=== PATIENT | female | born 1975 | race Two or more races ===

== ENCOUNTER 2024-01-18 08:44 | Outpatient (AMB) | payer OTHER, SELFPAY ==
--- NOTE | 2024-01-18 08:46 | MHC.OFFVIS ---
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 No pain or tenderness no vaginal discharge or any other concerns PFSH Medical History Hypothyroidism Surgical History H/O breast biopsy Family History Father Hypothyroidism Prostate cancer Lung cancer Maternal Grandmother Breast cancer Social History Household Members: Spouse Household Members Other:: son Housing: Apartment Alcohol intake: never Patient Tobacco Use Status: Former Tobacco user Current occupational status: unemployed Sexual orientation: Straight/Heterosexual Gender identity: Female Female Reproductive History Menstrual Age of Menarche: 10 Duration of menses: 3-5 days Date of last menstrual period: 01/01/24 control method: condoms Total pregnancies: 1 Full term: 1 Number of Living Children: 1 Review of Systems Const All systems reviewed & are unremarkable except as noted in HPI and below Physical Exam Vital Signs: BMI result Body Mass Index 20.9 General: Yes no CVA tenderness External Female Exam: normal external appearance (Left labia minora 0.3 cm sebaceous cyst) and normal appearance of the urethra Speculum Exam - Vagina: normal appearance of the vagina, normal palpation, no lesions and no masses Speculum Exam - Cervix: normal appearance of the cervix, normal palpation, no lesions, no masses and nontender Bimanual exam- vagina & uterus: normal bimanual exam, normal palpation, uterine size normal, normal palpation, uterine shape normal, No Cervical tenderness present and non-tender Bimanual Exam- Adnexa, other: normal adnexae Back/Spine/Pelvis Back: no CVA tenderness Assessment & Plan Assessment & Plan (1) Sebaceous cyst: Comment: Left labia minora Code(s): L72.3 - Sebaceous cyst Category: Medical Plan: Discussed with the patient the finding on pelvic exam showing a left labia minora sebaceous cyst, given the size of the cyst and being asymptomatic there is no indication for an IUD. Instructions given to the patient to call in case of pain or tenderness or drainage or redness or any other concerns. All questions answered, the patient verbalized understanding Coding Level of Care Code New Pt Level 3 (33303) Diagnoses Sebaceous cyst L72.3
[2024-01-18 08:48] VITALS: BP 100/56; BMI 20.9
== END 2024-01-18 09:13 | disposition home or self-care (01) ==
PROVIDERS: PCP Internal Medicine; Visit Provider Obstetrics & Gynecology
DX: L72.3 Sebaceous cyst (principal)
CPT/HCPCS: 99203

== ENCOUNTER → 2024-01-18 08:44 | Outpatient (BNVA) | payer OTHER, SELFPAY | PROVIDERS: PCP Internal Medicine; Visit Provider Obstetrics & Gynecology ==

== ENCOUNTER 2024-01-25 09:49 | Outpatient (REF) | payer OTHER, SELFPAY ==
[2024-01-25 13:12] LABS: MANUAL DIFF FLAG NO
[2024-01-25 13:26] LABS: Basophils Percent Auto 0.3 % (0-2); Eosinophils Absolute Auto 0.1 X10*3/uL (0.0-0.4); Eosinophils Percent Auto 1.5 % (0-4); Hemoglobin 13.9 g/dl (12.0-16.0); Imm Gran Abs Auto 0.02 X10*3/uL (0.00-0.03); Imm Gran Pct Auto 0.3 % (0.0-0.4); Lymphocytes Absolute Auto 2.6 X10*3/uL (1.2-4.9); Lymphocytes Percent Auto 38.4 % (20-40); Mean Corpuscular HGB Conc 34.8 g/dl (31.0-35.0); Mean Corpuscular Hemoglobin 32.3 pg (27.0-33.0); Mean Corpuscular Volume 92.8 fL (80.0-98.0); Mean Platelet Volume 10.5 fL (9.4-12.3); Monocytes Absolute Auto 0.5 X10*3/uL (0.1-1.2); Monocytes Percent Auto 7.7 % (2-11); Neutrophils Absolute Auto 3.5 x10*3/uL (2.0-8.3); Neutrophils Percent Auto 51.8 % (45-73); Platelet Count 249 X10*3/uL (160-400); Red Blood Count 4.31 X10*6/uL (4.20-5.50); Red Cell Distribution Width 12.7 % (11.0-16.0); White Blood Count 6.7 X10*3/uL (4.8-10.8)
[2024-01-25 13:50] LABS: Alanine Aminotransferase 20 U/L (0-31); Albumin Level 4.2 g/dL (3.5-5.0); Alkaline Phosphatase 50 U/L (39-117); Anion Gap 12 (12-20); Aspartate Amino Transferase 25 U/L (5-31); Bilirubin Total 0.6 mg/dL (0.0-1.0); Blood Urea Nitrogen 12 mg/dL (9-16); Calcium 9.4 mg/dL (8.4-10.2); Carbon Dioxide 25 mmol/L (22-29); Chloride 106 mmol/L (96-108); Cholesterol 187 mg/dL (<200); Estimated Glomerular Filt Rate > 60; Glucose Random 85 mg/dL (60-115); HDL Cholesterol 58 mg/dL (>40); LDL Cholesterol Calculated 101 mg/dL (<100); Potassium 3.6 mmol/L (3.3-5.1); Sodium 139 mmol/L (135-145); Total Protein 7.4 g/dL (6.5-8.0); Triglycerides 141 mg/dL (<150)
[2024-01-25 14:13] LABS: Thyroid Stimulating Hormone 0.21 uIU/mL (0.32-4.0)
[2024-01-27 08:56] LABS: Follicle Stimulating Hormone 8.6 mIU/mL
== END 2024-01-25 09:50 | disposition home or self-care (01) ==
LOC: HO.HMGCLDS 09:49
PROVIDERS: PCP Internal Medicine; Visit Provider Internal Medicine
DX: Z00.00 Encounter for general adult medical examination without abnormal findings (principal); E03.8 Other specified hypothyroidism; N95.1 Menopausal and female climacteric states; R63.4 Abnormal weight loss
CPT/HCPCS: 36415; 80053; 80061; 83001; 84443; 85025

== ENCOUNTER 2024-03-09 10:50 | Outpatient (AMB) | payer OTHER, SELFPAY ==
[2024-03-09 10:56] VITALS: BP 114/66; BMI 20.7
--- NOTE | 2024-03-09 10:56 | A.OFFVIS_ITS ---
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 No complaints. Last Pap/HPV Last Mammogram No previous screening mammogram PFSH Medical History Hypothyroidism Surgical History H/O breast biopsy Family History Father Hypothyroidism Prostate cancer Lung cancer Maternal Grandmother Breast cancer Social History Household Members: Spouse Household Members Other:: son Housing: Apartment Alcohol intake: never Patient Tobacco Use Status: Former Tobacco user Current occupational status: unemployed Sexual orientation: Straight/Heterosexual Gender identity: Female Female Reproductive History Menstrual Age of Menarche: 10 Date of last menstrual period: 02/27/24 Review of Systems Const All systems reviewed & are unremarkable except as noted in HPI and below Card Reports as per HPI Resp Reports as per HPI GI Reports as per HPI and Reports no additional complaints Reports as per HPI Physical Exam Vital Signs: Last Vital Signs BP 114/66 03/09/24 10:56 BMI result Body Mass Index 20.7 Const General: cooperative, healthy appearing and comfortable Chest Chest palpation & inspection: normal inspection of the chest and normal palpation of entire chest wall Breast/axilla inspection: normal inspection of the breasts and normal inspection of the axillae Breast/axilla palpation: normal palpation of the breasts, normal palpation of the axillae and no axillary lymphadenopathy Resp Effort & Inspection: normal respiratory effort Auscultation: clear to auscultation bilaterally Percussion: percussion normal Cardio Palpation: normal PMI Rate: regular rate Rhythm: regular rhythm Heart sounds: no murmurs and no rubs Peripheral pulses: Peripheral pulses 2+ throughout GI Inspection: Yes normal to inspection Palpation (GI): Soft to palpation, nontender, no guarding, not rigid and No hepatosplenomegaly present Percussion: Yes normal to percussion Auscultation: normal bowel sounds Rectal Exam - Female: deferred General: Yes bladder normal to palpation External Female Exam: No lesion Speculum Exam - Vagina: normal appearance of the vagina, normal palpation, normal vaginal discharge and not erythematous Speculum Exam - Cervix: normal appearance of the cervix and normal palpation Bimanual exam- vagina & uterus: normal bimanual exam, normal palpation, uterine size normal, bladder normal to palpation, consistency normal and normal palpation Bimanual Exam- Adnexa, other: normal adnexae, no masses and no tenderness Assessment & Plan Assessment & Plan (1) Well woman exam: Code(s): Z01.419 - Encounter for gynecological examination (general) (routine) without abnormal findings Category: Medical Plan: Cotesting done. Mammogram ordered. The patient is scheduled with GI in few weeks for screening colonoscopy Counseled the patient about the recommended dietary allowance of 1000 mg of Calcium & 600 IU of vitamin D. The patient was instructed to perform monthly self-breast exams and to schedule an annual exam in a year; All questions answered and the patient verbalized understanding. Instructed the patient to schedule annual exam in a year Orders: Orders MM tomosynthesis screening BI Today Z12.31 - Encounter for screening mammogram for malignant neoplasm of breast PAP + HPV E6/E7 rfx 18/45 Today Z01.419 - Encounter for gynecological examination (general) (routine) without abnormal findings Coding Level of Care Code Est Pt Prev Care 40-64y(87132) Diagnoses Well woman exam Z01.419
== END 2024-03-09 11:16 | disposition home or self-care (01) ==
LOC: HO.HWS 10:50
PROVIDERS: PCP Internal Medicine; Visit Provider Obstetrics & Gynecology
DX: Z01.419 Encounter for gynecological examination (general) (routine) without abnormal findings (principal)
CPT/HCPCS: 99396

== ENCOUNTER 2024-03-09 10:50 | Outpatient (REF) | payer OTHER, SELFPAY ==
[2024-03-13 11:43] LABS: HPV mRNA E6/E7 Not Detected (Not Detected)
== END 2024-03-09 10:51 | disposition home or self-care (01) ==
LOC: HO.LNP 10:50
PROVIDERS: PCP Internal Medicine; Visit Provider Obstetrics & Gynecology
DX: Z01.419 Encounter for gynecological examination (general) (routine) without abnormal findings (principal)
CPT/HCPCS: 87624; 88175

== ENCOUNTER 2024-03-27 09:34 | Outpatient (REF) | payer OTHER, SELFPAY ==
[2024-03-27 14:01] LABS: Thyroid Stimulating Hormone 1.43 uIU/mL (0.32-4.0)
== END 2024-03-27 09:35 | disposition home or self-care (01) ==
LOC: HO.HMGCLDS 09:34
PROVIDERS: PCP Internal Medicine; Visit Provider Internal Medicine
DX: E03.8 Other specified hypothyroidism (principal); Z68.21 Body mass index [BMI] 21.0-21.9, adult
CPT/HCPCS: 36415; 84443

== ENCOUNTER 2024-04-14 10:53 | Outpatient (REF) | payer OTHER, SELFPAY ==
--- NOTE | ~2024-04-14 | MM_ITS ---
EXAMINATION: MM SCREENING DIGITAL BREAST TOMOSYNTHESIS, BILATERAL CLINICAL INFORMATION: Screening. Asymptomatic. 48-year-old female, Breast cancer history in maternal grandmother, no age provided. Known fibrocystic dense breasts. Remote history of benign breast biopsy (unknown side) in 1993. COMPARISON: Mammography: No priors are available for direct comparison. All priors in [place] with unsuccessful attempts to acquire. One bilateral breast ultrasound 11/18/2023 on hard copy print out was reviewed, which demonstrated multiple bilateral cysts and/or fibroadenomas. TECHNIQUE: Digital breast tomosynthesis is performed in both the craniocaudal and mediolateral oblique views along with computer-aided detection (CAD). Synthesized 2D images are generated from the tomosynthesis. FINDINGS: The breasts are extremely dense, which lowers the sensitivity of mammography (ACR BI-RADS breast composition Category d). There are bilateral scattered and loosely grouped calcifications in both breasts, none suspicious or tightly grouped. These have a benign appearance. In addition, there are multiple circumscribed oval and round masses in both breasts, in keeping with known fibrocystic changes. Breast tissue is extremely dense, limiting assessment for subtle findings. Grossly no suspicious masses, suspicious calcifications, or areas of architectural distortion in either breast. No skin or axillary abnormality. MM/MM tomosynthesis screening BI IMPRESSION: No mammographic evidence of malignancy. Benign findings both breasts. ASSESSMENT: BI-RADS BI-RADS 2 - Benign Findings RECOMMENDATION: Routine annual mammography screening. 1 year F/U This examination should not preclude the clinical evaluation of a suspicious palpable abnormality. This patient's information was entered into a reminder system with a target due date for their next mammogram. Electronically signed by: Hubert Hernandes MD 04/17/2024 10:24 AM EDT
== END 2024-04-14 10:54 | disposition home or self-care (01) ==
LOC: HO.MAMMO 10:53
PROVIDERS: PCP Internal Medicine; Visit Provider Obstetrics & Gynecology
DX: Z12.31 Encounter for screening mammogram for malignant neoplasm of breast (principal)
CPT/HCPCS: 77063; 77067

== ENCOUNTER → 2024-04-14 10:56 | Outpatient (BNV) | payer OTHER, SELFPAY | PROVIDERS: PCP Internal Medicine; Visit Provider Radiology Diagnostic Radiology | DX: Z12.31 Encounter for screening mammogram for malignant neoplasm of breast (principal) | CPT/HCPCS: 77063; 77067 ==

== ENCOUNTER 2024-06-23 07:56 | Day surgery (SDC) | payer OTHER, SELFPAY ==
[2024-06-21 14:36] VITALS: BMI 21.6
--- NOTE | 2024-06-22 10:01 | HO.ANESPROP2 ---
Documented by User: Amanda Pollock NP 06/22/24 10:01 HPI - Anesthesia Eval Consult details Narrative: 48yo F for Colonoscopy PMFSH Active Problems Active Problems: All Active Problems Well woman exam (Acute) Sebaceous cyst (Acute) Past Medical History Medical History Hypothyroidism Family History Family History Father Hypothyroidism Prostate cancer Lung cancer Maternal Grandmother Breast cancer Surgical History Surgical History Hx of colonoscopy H/O breast biopsy Social History Social History Household Members: Spouse Household Members Other:: son Housing: Apartment Alcohol intake: never Patient Tobacco Use Status: Former Tobacco user Have you been hit, kicked, punched, or otherwise hurt by someone within the past year? If so, by whom?: No Are you DNR?: No Advance Directives: No Advance Directives Information Provided: Yes Current occupational status: unemployed Sexual orientation: Straight/Heterosexual Gender identity: Female Meds Allergies Allergy/AdvReac Type Severity Reaction Status Date / Time No Known Allergies Allergy Verified 03/09/24 10:59 Home Medications ?Medication ?Instructions ?Recorded ?Confirmed ?Last Taken ?Type levothyroxine 88 mcg tablet 88 mcg PO DAILY 01/18/24 06/21/24 06/23/24 History (Synthroid) Exam Height,Weight and Vital Signs: Height 5 ft 3 in Weight 55.338 kg Assessment and Plan Assessment Anesthesia Assessment: Chart Reviewed Documented by User: Ann Simpson MD 06/23/24 09:19 PMFSH Active Problems Active Problems: All Active Problems Well woman exam (Acute) Sebaceous cyst (Acute) Hypothyroidism Past Medical History Medical History Hypothyroidism Family History Family History Father Hypothyroidism Prostate cancer Lung cancer Maternal Grandmother Breast cancer Family history of problems with anesthesia: No Surgical History Surgical History Hx of colonoscopy H/O breast biopsy History of Problems with Anesthesia: No Social History Social History Household Members: Spouse Household Members Other:: son Housing: Apartment Alcohol intake: never Patient Tobacco Use Status: Former Tobacco user Have you been hit, kicked, punched, or otherwise hurt by someone within the past year? If so, by whom?: No Are you DNR?: No Advance Directives: No Advance Directives Information Provided: Yes Current occupational status: unemployed Sexual orientation: Straight/Heterosexual Gender identity: Female Meds Allergies Allergy/AdvReac Type Severity Reaction Status Date / Time No Known Allergies Allergy Verified 03/09/24 10:59 Home Medications ?Medication ?Instructions ?Recorded ?Confirmed ?Last Taken ?Type levothyroxine 88 mcg tablet 88 mcg PO DAILY 01/18/24 06/21/24 06/23/24 History (Synthroid) Exam Height,Weight and Vital Signs: Height 5 ft 3 in Weight 55.338 kg Vital Signs Temp Pulse Resp BP Pulse Ox O2 Del Method 06/23/24 08:42 98.5 F 70 20 119/69 98 Room Air Pertinent Lab Results Pertinent Lab Results: Lab Results 06/23/24 Range/Units 08:47 Urine Test NEGATIVE (NEGATIVE) Airway Mallampati Class: II TM Dist: >3cm Neck ROM: Full Loose/Missing/Broken Teeth: Yes (Some molars extracted. Denies broken or loose teeth) Heart: RRR Lungs: CTAB Assessment and Plan Assessment Anesthesia Assessment: Anesthesia Plan Discussed and Chart Reviewed Final Anesthetic Review Family History of Problems with Anesthesia: No History of Problems with Anesthesia: No NPO: Yes ASA Class: II Final Preanesthetic Review: No Changes in Pt Med Stat, Meds/Allgs Chart Reviewed, Consent Obtained/Reviewed and Anes Risks/Benef Reviewed Patient Risk: Low Procedure Risk: Low Assessment/Block/Sedation in SS: Assess/Block/Sedation-SS Anesthetic Plan Anesthetic Plan: TIVA Disposition: Standard PACU
[2024-06-23 08:42] VITALS: BP 119/69; PULSE 70; RESP 20; TEMP 36.9; O2SAT 98; BMI 22.0
--- NOTE | 2024-06-23 08:55 | MHC.SHP ---
Pre-Procedural Eval Section A - 24 Hr Update-Section A only Date of Service: 06/23/24 The patient is an INPATIENT: No The patient has been examined within 24 hours of the surgical procedure. The History & Physical has been completed within 30 days and I have reviewed it.: Yes Section B - Complete if H&P > 30 days Chief Complaint: screening Allergies: Allergies Allergy/AdvReac Type Severity Reaction Status Date / Time No Known Allergies Allergy Verified 03/09/24 10:59 Plan I have reviewed the history and physical and performed a pertinent physical examination on my patient. No changes have occurred unless specified. Time Spent With Patient Time: Total time managing care of this patient today ____ minutes.
[2024-06-23] MEDS: Lactated Ringers 1,000 ML 100 ML IVCONT (09:00)
[2024-06-23 09:01] LABS: UPreg QC Valid YES; Urine Pregnancy NEGATIVE (NEGATIVE)
--- NOTE | 2024-06-23 09:04 | MHC.SHP ---
Pre-Procedural Eval Section A - 24 Hr Update-Section A only Date of Service: 06/23/24 The patient is an INPATIENT: No Changes since office visit: No Cold of Flu in the past 2 weeks, No New Medical Problems, No Changes in Medication and No Patient answered all questions The patient has been examined within 24 hours of the surgical procedure. The History & Physical has been completed within 30 days and I have reviewed it.: Yes Section B - Complete if H&P > 30 days Chief Complaint: screening Allergies: Allergies Allergy/AdvReac Type Severity Reaction Status Date / Time No Known Allergies Allergy Verified 03/09/24 10:59 Plan I have reviewed the history and physical and performed a pertinent physical examination on my patient. No changes have occurred unless specified. Time Spent With Patient Time: Total time managing care of this patient today ____ minutes.
[2024-06-23 10:04] VITALS: BP 80/42; PULSE 65; RESP 16; TEMP 36.2; O2SAT 100
[2024-06-23 10:09] VITALS: BP 90/50; PULSE 60; RESP 16; O2SAT 99
[2024-06-23 10:19] VITALS: BP 89/57; PULSE 55; RESP 16; O2SAT 99
--- NOTE | 2024-06-23 10:25 | OP_ITS ---
DATE OF SERVICE: 06/23/2024 SURGEON: Jason Leigh MD INDICATIONS: Colon cancer screening. PREOPERATIVE DIAGNOSIS: POSTOPERATIVE DIAGNOSIS: PROCEDURE PERFORMED: Colonoscopy to the terminal ileum. ESTIMATED BLOOD LOSS: COMPLICATIONS: ANESTHESIA: Medications, monitored anesthesia care. ASSISTANTS: SPECIMENS: DESCRIPTION OF PROCEDURE: History and physical was performed. The risks and benefits of the procedure were explained to the patient. Informed consent was obtained. The patient was placed in a left lateral decubitus position. A digital rectal exam was performed and was found to be normal. The Olympus pediatric video colonoscope was introduced into the rectum and advanced to the cecum. The cecum was identified by transillumination, palpation, and identification of ileocecal valve. Examination was performed. The scope was removed. She tolerated the procedure well and returned to recovery area in stable condition. FINDINGS: The terminal ileum was examined and appeared normal. The visualized colonic mucosa was normal. The quality of prep was good. No polyps were identified. Retroflexed examination shows a small internal hemorrhoids. IMPRESSION: Normal colonoscopy. RECOMMENDATION: 1. Follow up as needed. 2. Repeat colonoscopy is recommended in 10 years for average-risk individuals. MD SHASTA Stinson/SACHIN / [phone]
[2024-06-23 10:34] VITALS: BP 108/68; PULSE 56; RESP 16; TEMP 36.2; O2SAT 100
--- OUTSIDE RECORDS SUMMARY | 2024-06-23 14:52 | XMS_ITS ---
Author Organization [facility] Address [address] [place] [address] Care Team Providers Care Electrotype Caster Name Role Phone Stevan Breanna Primary Care Provider Unavailab Jason Perez Jr REASON FOR VISIT screening Encounters Encounter Location Date Provider Diagnosis [facility] Outpatient [address] [place] [phone] 06/23/2024 Jason Leigh Jr PLAN OF TREATMENT No Information
--- OUTSIDE RECORDS SUMMARY | 2024-06-23 14:53 | XMS_ITS | Patient Health Record ---
Author Organization [facility] Address [address] [place] [address] Care Team Providers Care Cold Rolling Coordinator Name Role Phone Breanna Calles Primary Care Provider UnavailJason Vallejo Jr Unavailable ALLERGIES No Known Allergies RESULTS Component Value Reference Range Notes Ur Preg Test (Not yet review ed by provider) Interpretation: Performing Lab:[facility], [address] [place] [phone] Notes/Report: Urine NEGATIVE NEGATIVE This test was developed to detect early . False negative results may occur after the 5th - 7th week of when using this test method. If clinically indicated, consider a serum hCG. REASON FOR REFERRAL No Information MEDICATIONS Medication SIG (Take, Route, Frequency, Duration) Notes Start Date End Date Status Urinary Health/Cranberry 05/01/2024 Active MiraLax (colon prep) 17 GM/SCOOP mixed with Gatorade or Crystal Light Orally begin at 5:00 p.m. the day before the procedure for 1 day 05/01/2024 Active Centrum Adults - as directed Orally 05/01/2024 Active Levothyroxine Sodium 75 MCG TAKE 1 TABLE T BY MOUTH EVERY DAY Oral for 30 Active IMMUNIZATIONS Vaccine Route Administration Date Status Comme nts Influenza Unknown 04/22/2024 Administered SOCIAL HISTORY Tobacco Use: Social History Observation Description Date Details (start date - stop date) Former Smoker NA - NA Sex Assigned At : Social History Observation Description Sex Assigned At Unknown Tobacco Use/Smoking Question Answer Notes Patient is a former smoker Alcohol Screen Question Answer Notes Did you have a drink containing alcohol in the p ast year? No Points 0 Interpretation Negative PROBLEMS Problem Type ICD Code Onset Dates Problem Status W/U Status Risk SNOMED Code Notes Problem Colon cancer screening (Z12.11) Active confirmed 870783596 Problem Encounter for other preprocedural examination (Z01.818) Active confirmed 493034111 VITAL SIGNS Temperature 98.6 degrees Fahrenheit 05/01/2024 Blood pressure diastolic 00 mm Hg 05/01/2024 Height 5 ft 3 in in 05/01/2024 Blood pressure systolic 000 mm Hg 05/01/2024 Weight 122 lbs 05/01/2024 BMI 21.61 kg/m2 05/01/2024 Encounters Encounter Location Date Provider Diagnosis [facility] Outpatient [address] [place], [place] [phone] 06/23/2024 Jason Leigh Jr [facility] [address] [place] [address] 05/01/2024 Jason Leigh Jr Colon cancer screening Z12.11 and Encounter for other preprocedural examination Z01.818 ASSESSMENTS Encounter Date Diagnosis Assessment Notes Treatment Notes Treatment Clinical Notes 05/01/2024 Colon cancer screening (ICD-10 - Z12.11) Colonoscopy discharge material was printed 05/01/2024 Encounter for other preprocedural examination (ICD-10 - Z01.818) PLAN OF TREATMENT Pending Test Test Name Order Date Ur Preg Test 06/23/2024 Future Test Test Name Order Date COLONOSCOPY 05/01/2024 Insurance Providers Payer Name Payer Address Payer Phone Subscriber Number Group Number Insured Name Patient Relationship to Insured Coverage Start Date Coverage End Date [facility] [address] [place], [place] [id number] TYSON CLAYTON Self - patient is the insured MEDICAL (GENERAL) HISTORY Medical History History ICD Code Hypothyroidism Colonoscopy 2013, normal per patient Surgical History Surgery Date(Month/Year) breast cysts 1993
--- OUTSIDE RECORDS SUMMARY | 2024-06-23 14:53 | XMS_ITS ---
Author Organization [facility] Address [address] [place] [address] Care Team Providers Care Screen Printing Cloth Spreader Name Role Phone Breanna Calles Primary Care Provider Jason Briones Jr Unavailable ALLERGIES No Known Allergies REASON FOR VISIT Patient presents today for a COLONOSCOPY MEDICATIONS Medication SIG (Take, Route, Frequency, Duration) [...] MOUTH EVERY DAY Oral for 30 Active SOCIAL HISTORY Tobacco Use: Social History Observation [...] Problem Colon cancer screening (Z12.11) Active confirmed 379558707 Problem Encounter for other preprocedural examination (Z01.818) Active confirmed 241938651 VITAL SIGNS BMI 21.61 kg/m2 05/01/2024 Blood pressure systolic 000 mm Hg 05/01/20 24 Blood pressure diastolic 00 mm Hg 024 Height 5 ft 3 in in 05/01/2024 Temperature 98.6 degrees Fahrenheit 05/01/20 24 Weight 122 lbs 05/01/2024 Encounters Encounter Location Date Provider Diagnosis [facility] [address] [place] [address] 05/01/2024 Jason Leigh Jr Colon cancer screening Z12.11 and Encounter for other preprocedural examination Z01.818 ASSESSMENTS Encounter Date Diagnosis Assessment Notes Treatment Notes Treatment Clinical Notes 05/01/2024 Colon cancer screening (ICD-10 - Z12.11) Colonoscopy discharge material was printed 05/01/2024 Encounter for other preprocedural examination (ICD-10 - Z01.818) PLAN OF TREATMENT Medication Medication Name Sig Start Date Stop Date Notes MiraLax (colon prep) 17 GM/SCOOP mixed with Gatorade or Crystal Light Orally begin at 5:00 p.m. the day before the procedure for 1 day 05/01/2024 Treatment Notes Assessment Notes Colon cancer screening Colonoscopy disch arge material was printed Future Test Test Name Order Date COLONOSCOPY 05/01/2024 Next Appt Details Follow Up: 1 Year, Reason: Progress Notes * Examination Category Sub-Category Detail Notes General Examination GENERAL APPEARANCE: in no ac hayley distress HEAD: normocephalic EYES: sclera non-icteric NECK/THYROID: no lymphadenopathy HEART: S1, S2 normal, no mu rmurs CHEST: normal shape and exp ansion LUNGS: clear to auscultatio n bilaterally ABDOMEN: soft, nontender, non distended, bowel sounds present, no organomegaly SKIN: anicteric EXTREMITIES: no clubbing, cyanosi s, or edema PSYCH: cognitive function i ntact ORAL CAVITY: mucosa moist
== END 2024-06-23 11:02 | disposition home or self-care (01) ==
PROVIDERS: Nurse Practitioner; PCP Internal Medicine; Visit Provider Internal Medicine Gastroenterology
PROC: 0DJD8ZZ Inspection of Lower Intestinal Tract, Via Natural or Artificial Opening Endoscopic (ICD-10-PCS; CPT 45378; principal; 2024-06-23 09:40)
DX: Z12.11 Encounter for screening for malignant neoplasm of colon (principal); K64.8 Other hemorrhoids; E03.9 Hypothyroidism, unspecified; Z87.891 Personal history of nicotine dependence; Z79.899 Other long term (current) drug therapy
CPT/HCPCS: 45378; 81025; J2003; J2704

== ENCOUNTER 2024-09-28 08:41 | Outpatient (REF) | payer OTHER, SELFPAY ==
--- OUTSIDE RECORDS SUMMARY | 2024-09-28 09:11 | XMS_ITS | Patient Health Record ---
Author Organization [facility] Address [address] [place] [address] Care Team Providers Care Information Writer Name Role Phone Breanna Calles Primary Care Provider Unavailab Jason Perez Jr Unavailable [phone] ALLERGIES No Known Allergies RESULTS Component Value Reference Range Notes Ur Preg Test Reviewed date:06/23/2024 03:37:17 PM Interpretation: Performing Lab:[facility], [address] [place] [phone] Notes/Report: Urine NEGATIVE NEGATIVE This test was [...] Problem Colon cancer screening (Z12.11) Active confirmed 544964634 Problem Encounter for other preprocedural examination (Z01.818) Active confirmed 623234496 VITAL SIGNS Temperature 98.6 degrees Fahrenheit 05/01/2024 Blood pressure diastolic 00 mm Hg 05/01/2024 Height 5 ft 3 in in 05/01/2024 Blood pressure systolic 000 mm Hg 05/01/2024 Weight 122 lbs 05/01/2024 BMI 21.61 kg/m2 05/01/2024 Encounters Encounter Location Date Provider Diagnosis [facility] Outpatient [address] [place], [place] [phone] 06/23/2024 Jason Leigh Jr Colon cancer screening Z12.11 [facility] [address] [place] [address] 05/01/2024 Jason Leigh Jr Colon cancer screening Z12.11 and Encounter for other preprocedural examination Z01.818 ASSESSMENTS Encounter Date Diagnosis Assessment Notes Treatment Notes Treatment Clinical Notes 06/23/2024 Colon cancer screening (ICD-10 - Z12.11) 05/01/2024 Colon cancer screening (ICD-10 - Z12.11) Colonoscopy discharge material was printed 05/01/2024 Encounter for other preprocedural examination (ICD-10 - Z01.818) PLAN OF TREATMENT Future Test Test Name Order Date COLONOSCOPY 05/01/2024 Insurance Providers Payer Name Payer Address Payer Phone Subscriber Number Group Number Insured Name Patient Relationship to Insured Coverage Start Date Coverage End Date [facility] [address] [place], [place] [id number] TYSON CLAYTON Self - patient is the insured MEDICAL (GENERAL) HISTORY Medical History History ICD Code Hypothyroidism Colonoscopy 2013, normal per patient Surgical History Surgery Date(Month/Year) breast cysts 1993
--- OUTSIDE RECORDS SUMMARY | 2024-09-28 09:11 | XMS_ITS ---
Author Organization [facility] Address [address] [place] [address] Care Team Providers Care High Energy Forming Equipment Operator Name Role Phone Breanna Calles Primary Care Provider UnavailJason Vallejo Jr Unavailable [phone] ALLERGIES No Known Allergies REASON FOR VISIT [...] Problem Colon cancer screening (Z12.11) Active confirmed 776935670 Problem Encounter for other preprocedural examination (Z01.818) Active confirmed 251089138 VITAL SIGNS Temperature 98.6 degrees Fahrenheit 05/01/20 24 Blood pressure systolic 000 mm Hg 05/01/20 24 Blood pressure diastolic 00 mm Hg 024 Height 5 ft 3 in in 05/01/2024 Weight 122 lbs 05/01/2024 BMI 21.61 kg/m2 05/01/2024 Encounters Encounter Location Date Provider Diagnosis [facility] [address] [place] [address] 05/01/2024 Jason Leigh Jr Colon cancer screening [...] General Examination GENERAL APPEARANCE: in no ac unga distress HEAD: normocephalic EYES: sclera non-icteric NECK/THYROID: no lymphadenopathy HEART: S1, S2 normal, no mu rmurs CHEST: normal shape and exp ansion LUNGS: clear to auscultatio n bilaterally ABDOMEN: soft, nontender, non distended, bowel sounds present, no organomegaly SKIN: anicteric EXTREMITIES: no clubbing, cyanosi s, or edema PSYCH: cognitive function i ntact ORAL CAVITY: mucosa moist
--- OUTSIDE RECORDS SUMMARY | 2024-09-28 09:12 | XMS_ITS ---
Author Organization [facility] Address [address] [place] [address] Care Team Providers Care Delivery Driver Assistant Name Role Phone Breanna Calles Primary Care Provider Unavailab Jason Perez Jr REASON FOR VISIT screening Encounters Encounter Location Date Provider Diagnosis [facility] Outpatient [address] [place] [phone] 06/23/2024 Jason Leigh Jr Colon cancer screening Z12.11 ASSESSMENTS Encounter Date Diagnosis Assessment Notes Treatment Notes Treatment Clinical Notes 06/23/2024 Colon cancer screening (ICD-10 - Z12.11) PLAN OF TREATMENT No Information
== END 2024-09-28 08:42 | disposition home or self-care (01) ==
LOC: HO.HMGCLDS 08:41
PROVIDERS: PCP Internal Medicine; Visit Provider Internal Medicine
DX: E03.8 Other specified hypothyroidism (principal); N30.00 Acute cystitis without hematuria; R30.0 Dysuria
CPT/HCPCS: 36415; 84443

== ENCOUNTER 2024-11-03 07:50 | Outpatient (REF) | payer OTHER, SELFPAY ==
--- NOTE | ~2024-11-03 | US_ITS ---
EXAMINATION: US SCREENING ULTRASOUND BREAST, BILATERAL CLINICAL INFORMATION: Dense breasts on mammography. Screening ultrasound. COMPARISON: Mammogram April 14, 2024. TECHNIQUE: Ultrasound is performed using grayscale imaging and color Doppler. Imaging is performed to include the four quadrants and retroareolar region. Both breasts are imaged. FINDINGS: Right breast: There is no suspicious finding by ultrasound. There is no solid mass or focal architectural abnormality. Left breast: There is no suspicious finding by ultrasound. There is no solid mass or focal architectural abnormality. US/US breast BI complete IMPRESSION: No suspicious findings on screening breast ultrasound. ASSESSMENT: BI-RADS 1 - Negative RECOMMENDATION: 1 year F/U This patient's information was entered into a reminder system with a target due date for their next mammogram. Electronically signed by: Zenobia Servin DO 11/03/2024 08:54 AM EDT
--- OUTSIDE RECORDS SUMMARY | 2024-11-03 07:54 | XMS_ITS | Patient Health Record ---
Author Organization [facility] Address [address] [place] [address] Care Team Providers Care President And Cmo Name Role Phone Breanna Calles Primary Care Provider Unavailab Jason Perez Jr Unavailable Allergies No Known Allergies Results Component Value Reference Range Notes Ur Preg Test Reviewed date:06/23/2024 03:37:17 PM Interpretation: Performing Lab:[facility], [address] [place] [phone] Notes/Report: Urine NEGATIVE NEGATIVE This test was developed to detect early . False negative results may occur after the 5th - 7th week of when using this test method. If clinically indicated, consider a serum hCG. Reason For Referral No Information Medications Medication SIG (Take, Route, Frequency, Duration) Notes [...] MOUTH EVERY DAY Oral for 30 Active Immunizations Vaccine Route Administration Date Status Comme nts Influenza Unknown 04/22/2024 Administered Social History Tobacco Use: Social History Observation Description Date Details (start date - stop date) Former Smoker NA - NA Tobacco Use/Smoking Question Answer Notes Patient is a former smoker Alcohol Screen Question Answer Notes Did you have a drink containing alcohol in the p ast year? No Points 0 Interpretation Negative Problems Problem Type SNOMED Code ICD Code Onset Dates Problem Status W/U Status Risk Notes Problem 318356431 Colon cancer screening (Z12.11) Active confirmed Problem 760027665 Encounter for other preprocedural examination (Z01.818) Active confirmed Vital Signs Temperature 98.6 degrees Fahrenheit 05/01/2024 Blood pressure diastolic 00 mm Hg 05/01/2024 Height 5 ft 3 in in 05/01/2024 Blood pressure systolic 000 mm Hg 05/01/2024 Weight 122 lbs 05/01/2024 BMI 21.61 kg/m2 05/01/2024 Encounters Encounter Location Date Provider Diagnosis [facility] [place] [address] [place], [place] [phone] 06/23/2024 Jason Leigh Jr Colon cancer screening Z12.11 [facility] [address] [place] [address] 05/01/2024 Jason Leigh Jr Colon cancer screening Z12.11 and Encounter for other preprocedural examination Z01.818 Assessments Encounter Date Diagnosis (ICD Code) Assessment Notes Treatment Notes Treatment Clinical Notes Section Notes 06/23/2024 Colon cancer screening (ICD-10 - Z12.11) 05/01/2024 Colon cancer screening (ICD-10 - Z12.11) Colonoscopy discharge material was printed We discussed colonoscopy today. We discussed risks and benefits of the procedure today. She understands these and agrees to proceed. This will be scheduled at her convenience. Multiple 05/01/2024 Encounter for other preprocedural examination (ICD-10 - Z01.818) We discussed colonoscopy today. We discussed risks and benefits of the procedure today. She understands these and agrees to proceed. This will be scheduled at her convenience. Multiple Plan Of Treatment Future Test Test Name Order Date COLONOSCOPY 05/01/2024 Insurance Providers Payer Name Payer Address Payer Phone Subscriber Number Group Number Insured Name Patient Relationship to Insured Coverage Start Date Coverage End Date [facility] [address] ADRIENNE YUNIERAlejandro JACK [id number] TYSON CLAYTON Self - patient is the insured Medical (General) History Medical History History ICD Code Hypothyroidism Colonoscopy 2013, normal per patient Surgical History Surgery Date(Month/Year) breast cysts 1993
--- OUTSIDE RECORDS SUMMARY | 2024-11-03 07:55 | XMS_ITS ---
Author Organization [facility] Address [address] [place] [address] Care Team Providers Care Wire Lather Name Role Phone Breanna Calles Primary Care Provider UnavailJason Vallejo Jr Unavailable Allergies No Known Allergies REASON FOR VISIT Patient presents today for a COLONOSCOPY Medications Medication SIG (Take, Route, Frequency, Duration) [...] MOUTH EVERY DAY Oral for 30 Active Social History Tobacco Use: Social History Observation [...] Problem Status W/U Status Risk Notes Problem 190046446 Colon cancer screening (Z12.11) Active confirmed Problem 918759565 Encounter for other preprocedural examination (Z01.818) Active confirmed Vital Signs Temperature 98.6 degrees Fahrenheit 05/01/20 24 Blood pressure systolic 000 mm Hg 05/01/20 24 Blood pressure diastolic 00 mm Hg 024 Height 5 ft 3 in in 05/01/2024 Weight 122 lbs 05/01/2024 BMI 21.61 kg/m2 05/01/2024 Encounters Encounter Location Date Provider Diagnosis [facility] [address] [place] [address] 05/01/2024 Jason Leigh Jr Colon cancer screening Z12.11 and Encounter for other preprocedural examination Z01.818 Assessments Encounter Date Diagnosis (ICD Code) Assessment Notes Treatment Notes Treatment Clinical Notes Section Notes 05/01/2024 Colon cancer screening (ICD-10 - [...] at her convenience. Multiple Plan Of Treatment Medication Medication Name Sig Start Date Stop [...] Up: 1 Year, Reason: Progress Notes * TYSON CLAYTONDOB:[birth year] (48 yo F)Acc No.[id number]:05/01/2024 Progress Notes Patient:?TYSON CLAYTON Provider:?Jason Leigh MD :1975???Age:48 Y???Sex:Female D ate:05/01/2024 Address:[address] [place] [address] Pcp:Breanna Calles Subjective: * Chief Complaints: * ???1. Patient presents today for a COLONOSCOPY. * HPI: ???New symptom(s):? Tyson is a pleasant 48-year-old woman seen today in consultation at the request of her primary care provider. She complains of abdominal bloating with intermittent episodes of constipation. She has no rectal bleeding. She tries to follow a balanced diet that is high in fiber. She has no complaints of rectal pain. Bloating symptoms are not related to diet, and there are no precipitating factors or relieving factors. There is no radiation of the symptoms. She reports 10 years ago colonoscopy was negative. * ROS:?General/Constitutional:?Change in appetite?denies.?Fatigue?denies.?ENT:?Patient denies?difficulty swallowing.?Respiratory:?Patient denies?shortness of breath.?Cardiovascular:?Patient denies?chest pain.?Gastrointestinal:?Comments?See HPI for details.?Genitourinary:?Difficulty urinating?denies.?Incontinence?denies.?Musculoskeletal:?Patient denies?muscle aches.?Skin:?Patient denies?pruritis.?Neurologic:?Patient denies?low back pain.?Psychiatric:?Patient denies?mental or physical abuse.? * Medical History:?Hypothyroid ism, Colonoscopy 2013, normal per patient. * Surgical History:?breast cys ts 1993. * Family History:?Father: dece ased.?Mother: alive.? No family history of liver cancer or colon cancer. * Social History:?Tobacco Use:?Tobacco Use/Smoking?Patient is a?former smoker.?Drugs/Alcohol:?Alcohol Screen?Did you have a drink containing alcohol in the past year??No,?Points?0,?Interpretation?Negative.?Miscellaneous:?Marital status: . Occupation: teacher. * Medications:?Taking Levothyr oxine Sodium 75 MCG Tablet TAKE 1 TABLET BY MOUTH EVERY DAY Oral , Taking Centrum Adults - Tablet as directed Orally , Taking Urinary Health/Cranberry , Medication List reviewed and reconciled with the patient * Allergies:?N.K.D.A. Objective: * Vitals:?Wt: 122 lbs, Ht: 5 f t 3 in, BMI:21.61 Index, BP: 000/00 mm Hg, Temp: 98.6. * Examination: ???General Examination: ?GENERAL APPEARANCE:?in no acute distress.?HEAD:?normocephalic.?EYES:?sclera non-icteric.?ORAL CAVITY:?mucosa moist.?NECK/THYROID:?no lymphadenopathy.?SKIN:?anicteric.?HEART:?S1, S2 normal, no murmurs.?LUNGS:?clear to auscultation bilaterally.?CHEST:?normal shape and expansion.?ABDOMEN:?soft, nontender, nondistended, bowel sounds present, no organomegaly .?EXTREMITIES:?no clubbing, cyanosis, or edema.?PSYCH:?cognitive function intact.? Assessment: * Assessment: 1.?Encounter for other prepr ocedural examination - Z01.818 (Primary)?2.?Colon cancer screening - Z12.11? We discussed colonoscopy tonat [place]. We discussed risks and benefits of the procedure today. She understands these and agrees to proceed. This will be scheduled at her convenience. Multiple. Plan: * Treatment: Notes: Colonoscopy discharge material was printed?? * Procedure Codes:?3017F COLOR ECTAL CA SCREEN DOC REV, G9903 Pt scrn tbco id as non user, G9745 DOC RSN FOR NOT SCREEN/REC F/U HBP * Follow Up:?1 Year * * Sign off status: Completed true * Provider:?Jason Leigh MD Date:?0 05/01/2024 Generated for Printi ng/Favance/eTransmitting on:?11/03/2024 07:54 AM EDT History and Physical Notes * HPI (History of Present Illness) Category Sub-Category Detail Notes Category Not es New symptom(s) Tyson is a pl easant 48-year-old woman seen today in consultation at the request of her primary care provider. She complains of abdominal bloating with intermittent episodes of constipation. She has no rectal bleeding. She tries to follow a balanced diet that is high in fiber. She has no complaints of rectal pain. Bloating symptoms are not related to diet, and there are no precipitating factors or relieving factors. There is no radiation of the symptoms. She reports 10 years ago colonoscopy was negative. Examination Category Sub-Category Detail Notes Category Not es General Examination GENERAL APPEARANCE: in no acute di stress HEAD: normocephalic EYES: sclera non-icteric NECK/THYROID: no lymphadenopathy HEART: S1, S2 normal, no mu rmurs CHEST: normal shape and exp ansion LUNGS: clear to auscultatio n bilaterally ABDOMEN: soft, nontender, non distended, bowel sounds present, no organomegaly SKIN: anicteric EXTREMITIES: no clubbing, cyanosi s, or edema PSYCH: cognitive function i ntact ORAL CAVITY: mucosa moist
--- OUTSIDE RECORDS SUMMARY | 2024-11-03 07:55 | XMS_ITS ---
Author Organization [facility] Address [address] [place] [address] Care Team Providers Care Operation Research Analyst Name Role Phone Breanna Calles Primary Care Provider UnavailJason Vallejo Jr [phone] REASON FOR VISIT screening Encounters Encounter Location Date Provider Diagnosis [facility] [place] [address] [place] [phone] 06/23/2024 Jason Leigh Jr Colon cancer screening Z12.11 Assessments Encounter Date Diagnosis (ICD Code) Assessment Notes Treatment Notes Treatment Clinical Notes Section Notes 06/23/2024 Colon cancer screening (ICD-10 - Z12.11) Plan Of Treatment No Information Progress Notes * TYSON CLAYTONDOB:[birth year] (49 yo F)Acc No.[id number]:06/23/2024 COLON WITH MAC Patient:?TYSON CLAYTON Provider:?Jason Leigh MD :1975???Age:48 Y???Sex:Female D ate:06/23/2024 Address: [address] , [place], [facility] Pcp:Breanna Calles Subjective: * Chief Complaints: * ???1. Screening. * Medical History:? Objective: * Vitals:? Assessment: * Assessment: 1.?Colon cancer screening - Z12.11 (Primary)??? Plan: * Treatment: * Procedure Codes:?16397 DIAGN OSTIC COLONOSCOPY, 0529F INTRVL 3+YRS PTS CLNSCP DOCD * * The named appointment provid er may or may not be the originator of this progress note, and it is not deemed complete until electronically signed by the appointment provider. Sign off status: Pending * Provider:?Jason Leigh MD Date:?1 08/23/2023 Generated for Vickey brown/Zoe/Kerriitting on:?11/03/2024 07:54 AM EDT
== END 2024-11-03 07:51 | disposition home or self-care (01) ==
LOC: HO.MAMMO 07:50
PROVIDERS: PCP Internal Medicine; Visit Provider Internal Medicine
DX: R92.30 Dense breasts, unspecified (principal)
CPT/HCPCS: 76641

== ENCOUNTER → 2024-11-03 08:00 | Outpatient (BNV) | payer OTHER, SELFPAY | PROVIDERS: PCP Internal Medicine; Visit Provider Internal Medicine | DX: R92.8 Other abnormal and inconclusive findings on diagnostic imaging of breast (principal) | CPT/HCPCS: 76641 ==

== ENCOUNTER 2024-12-27 08:09 | Outpatient (REF) | payer OTHER, SELFPAY ==
--- OUTSIDE RECORDS SUMMARY | 2024-12-27 08:21 | XMS_ITS | Patient Health Record ---
Author Organization [facility] Address [address] [place] [address] Care Team Providers Care Bus Driver/Monitor Name Role Phone Breanna Calles Primary Care Provider Unavailab Jason Perez Jr Unavailable Allergies No Known Allergies Results Component Value Reference Range Notes Ur Preg Test Reviewed date:06/23/2024 03:37:17 PM Interpretation: Performing Lab:[facility], [address] [place] [id number] Notes/Report: Urine NEGATIVE NEGATIVE This test was [...] Problem Status W/U Status Risk Notes Problem 612040818 Colon cancer screening (Z12.11) Active confirmed Problem 970235606 Encounter for other preprocedural examination (Z01.818) Active confirmed Vital Signs Temperature 98.6 degrees Fahrenheit 05/01/2024 Blood pressure diastolic 00 mm Hg 05/01/2024 Height 5 ft 3 in in 05/01/2024 Blood pressure systolic 000 mm Hg 05/01/2024 Weight 122 lbs 05/01/2024 BMI 21.61 kg/m2 05/01/2024 Encounters Encounter Location Date Provider Diagnosis [facility] [place] [address] [place], [place] [phone] 06/23/2024 Jason Leigh Jr Colon cancer screening Z12.11 [facility] [address] [place] [address] 05/01/2024 Jason Liegh Jr Colon cancer screening Z12.11 and Encounter [...] Insured Coverage Start Date Coverage End Date [facility] [place] [address] ADRIENNE YUNIERAlejandro JACK [id number] TYSON CLAYTON Self - patient is the insured Medical (General) History Medical History History ICD Code Hypothyroidism Colonoscopy 2013, normal per patient Surgical History Surgery Date(Month/Year) breast cysts 1993
[2024-12-27 10:18] LABS: MANUAL DIFF FLAG NO
[2024-12-27 10:26] LABS: Basophils Percent Auto 0.5 % (0-2); Eosinophils Absolute Auto 0.1 X10*3/uL (0.0-0.4); Eosinophils Percent Auto 1.3 % (0-4); Hemoglobin 13.3 g/dl (12.0-16.0); Imm Gran Abs Auto 0.02 X10*3/uL (0.00-0.03); Imm Gran Pct Auto 0.3 % (0.0-0.4); Lymphocytes Absolute Auto 2.4 X10*3/uL (1.2-4.9); Lymphocytes Percent Auto 39.5 % (20-40); Mean Corpuscular HGB Conc 33.3 g/dl (31.0-35.0); Mean Corpuscular Hemoglobin 31.4 pg (27.0-33.0); Mean Corpuscular Volume 94.6 fL (80.0-98.0); Mean Platelet Volume 10.6 fL (9.4-12.3); Monocytes Absolute Auto 0.5 X10*3/uL (0.1-1.2); Monocytes Percent Auto 7.6 % (2-11); Neutrophils Absolute Auto 3.1 x10*3/uL (2.0-8.3); Neutrophils Percent Auto 50.8 % (45-73); Platelet Count 239 X10*3/uL (160-400); Red Blood Count 4.23 X10*6/uL (4.20-5.50); Red Cell Distribution Width 13.2 % (11.0-16.0); White Blood Count 6.1 X10*3/uL (4.8-10.8)
[2024-12-27 11:01] LABS: Alanine Aminotransferase 18 U/L (0-31); Albumin Level 4.2 g/dL (3.5-5.0); Alkaline Phosphatase 51 U/L (39-117); Anion Gap 9 (12-20); Aspartate Amino Transferase 27 U/L (5-31); Bilirubin Total 0.6 mg/dL (0.0-1.0); Blood Urea Nitrogen 10 mg/dL (9-16); Calcium 8.8 mg/dL (8.4-10.2); Carbon Dioxide 27 mmol/L (22-29); Chloride 106 mmol/L (96-108); Cholesterol 214 mg/dL (<200); Estimated Glomerular Filt Rate > 60; Glucose Random 81 mg/dL (60-115); HDL Cholesterol 60 mg/dL (>40); LDL Cholesterol Calculated 122 mg/dL (<100); Potassium 3.6 mmol/L (3.3-5.1); Sodium 138 mmol/L (135-145); Total Protein 7.2 g/dL (6.5-8.0); Triglycerides 164 mg/dL (<150)
[2024-12-27 11:03] LABS: Thyroid Stimulating Hormone 0.66 uIU/mL (0.32-4.0)
== END 2024-12-27 08:10 | disposition home or self-care (01) ==
LOC: HO.HMGCLDS 08:09
PROVIDERS: PCP Internal Medicine; Visit Provider Internal Medicine
DX: E03.8 Other specified hypothyroidism (principal); M54.50 Low back pain, unspecified; R05.3 Chronic cough; R92.30 Dense breasts, unspecified
CPT/HCPCS: 36415; 80053; 80061; 84443; 85025

== ENCOUNTER 2025-04-19 16:08 | Outpatient (REF) | payer OTHER, SELFPAY | END 2025-04-19 16:09 | disposition home or self-care (01) | LOC: HO.MAMMO 16:08 | PROVIDERS: PCP Internal Medicine; Visit Provider Obstetrics & Gynecology | DX: Z12.31 Encounter for screening mammogram for malignant neoplasm of breast (principal) | CPT/HCPCS: 77063; 77067 ==

== ENCOUNTER → 2025-04-19 16:15 | Outpatient (BNV) | payer OTHER, SELFPAY | PROVIDERS: PCP Internal Medicine; Visit Provider Internal Medicine | DX: Z12.31 Encounter for screening mammogram for malignant neoplasm of breast (principal) | CPT/HCPCS: 77063; 77067 ==

== ENCOUNTER 2025-05-24 13:53 | Outpatient (REF) | payer OTHER, SELFPAY ==
--- OUTSIDE RECORDS SUMMARY | 2024-06-23 05:40 | XMS_ITS ---
Author Organization [facility] Address [address] [place] [phone] Care Team Providers Care Dining Room Attendant Name Role Phone Breanna Calles Primary Care Provider UnavailJason Vallejo Jr REASON FOR VISIT screening Encounters Encounter Location Date Provider Diagnosis [facility] Outpatient [address] [place] [phone] 06/23/2024 Jason Leigh Jr Colon cancer screening Z12.11 Assessments Encounter Date Diagnosis (ICD Code) Assessment Notes Treatment Notes Treatment Clinical Notes Section Notes 06/23/2024 Colon cancer screening (ICD-10 - Z12.11) Plan Of Treatment No Information Progress Notes * TYSON CLAYTONDOB:[birth year] (49 yo F)Acc No.[id number]:06/23/2024 COLON WITH MAC Patient: TYSON SCOTT Provider: Carter Leigh MD :1975 A ge:48 Y S ex:Female Date:06/23/2024 Address:[address] [facility] [address] , [place] [facility] Pcp:Breanna Calles Subjective: * Chief Complaints: * 1 . Screening. * Medical History: Objective: * Vitals: Assessment: * Assessment: 1. C olon cancer screening - Z12.11 (Primary) Plan: * Treatment: * Procedure Codes: 4 5378 DIAGNOSTIC COLONOSCOPY, 0529F INTRVL 3+YRS PTS CLNSCP DOCD * * The named appointment provid er may or may not be the originator of this progress note, and it is not deemed complete until electronically signed by the appointment provider. Sign off status: Pending * Provider: Carter Leigh MD Date: 08/23/2023 Generated for Vickey brown/Zoe/Joanie on: 05:46 PM EDT
--- NOTE | ~2025-05-24 | MM_ITS ---
EXAMINATION: MM DIAGNOSTIC DIGITAL BREAST TOMOSYNTHESIS, RIGHT Limited right breast ultrasound. CLINICAL INFORMATION: Back from screening for asymmetry in the lateral right breast posterior depth on CC view. COMPARISON: Mammography: Prior's on PACS. TECHNIQUE: Digital breast tomosynthesis is performed in both the craniocaudal and mediolateral oblique views along with computer-aided detection (CAD). Synthesized 2D images are generated from the tomosynthesis. FINDINGS: The breasts are extremely dense, which lowers the sensitivity of mammography. Asymmetry in the lateral right breast middle to posterior depth persists is a circumscribed oval mass. No suspicious calcifications or other abnormal findings. Targeted color Doppler ultrasound scanning from 7-11 o'clock in the right breast demonstrates at 12:00 4 cm from nipple a hypoechoic parallel circumscribed solid mass measuring 8 x 9 x 5 mm. At 10:00 4 cm from nipple there is a hypoechoic oval circumscribed parallel solid mass measuring 10 x 10 x 4 mm. This is a likely correlate for the circumscribed oval mass seen on mammography. At 11:00 4 cm from nipple there is a hypoechoic oval circumscribed subdermal solid mass measuring 6 x 5 x 5 mm. At 11 30 4 cm from the nipple there is a hypoechoic subdermal solid mass measuring 8 x 6 x 3 mm. MM/MM tomosynthesis added views R IMPRESSION: Hypoechoic oval circumscribed solid masses in the right breast at 10:00 11:00 12:00 and 11:30. Recommend 6 month follow-up right breast ultrasound for further evaluation of stability. ASSESSMENT: BI-RADS Category 3: Probably benign RECOMMENDATION: 6 Month F/U Results were provided to the patient at time of visit by the technologist. This patient's information was entered into a reminder system with a target due date for their next mammogram. Electronically signed by: Zenobia Servin DO 05/24/2025 03:08 PM EDT
--- OUTSIDE RECORDS SUMMARY | 2025-05-24 17:47 | XMS_ITS | Patient Health Record ---
Author Organization [facility] Address [address] [place] [address] Care Team Providers Care Hospital Admissions Clerk Name Role Phone Breanna Calles Primary Care Provider Unavailab Jason Perez Jr Unavailable [phone] Allergies No Known Allergies Results Component Value Reference Range Notes Ur Preg Test Reviewed date:06/23/2024 03:37:17 PM Interpretation: Performing Lab:[facility], [address] [place] [phone] Notes/Report: Urine NEGATIVE NEGATIVE This test was [...] at 5:00 p.m. the day before the procedure; Duration: 1 day 05/01/2024 Active Centrum Adults - as directed Orally 05/01/2024 Active Levothyroxine Sodium 75 MCG TAKE 1 TABLE T BY MOUTH EVERY DAY Oral; Duration: 30 Active Immunizations Vaccine Route Administration Date [...] Problem Status W/U Status Risk Notes Problem Colon cancer screening (220324363) Colon cancer screening (Z12.11) Active confirmed Problem Pre-procedure evaluation check (267574956) Encounter for other preprocedural examination (Z01.818) Active confirmed Encounters Encounter Location Date Provider Diagnosis [facility] [place] [address] [place] [phone] 06/23/2024 Jason Leigh Jr Colon cancer screening Z12.11 Assessments Encounter Date Diagnosis (ICD Code) Assessment Notes Treatment Notes Treatment Clinical Notes Section Notes 06/23/2024 Colon cancer screening (ICD-10 - Z12.11) Plan Of Treatment Future Test Test Name Order Date COLONOSCOPY 05/01/2024 Insurance Providers Payer Name Payer Address Payer Phone Subscriber Number Group Number Insured Name Patient Relationship to Insured Coverage Start Date Coverage End Date [facility] [address] [place], [place] [id number] TYSON CLAYTON Self - patient is the insured Medical (General) History Medical History History ICD Code Hypothyroidism Colonoscopy 2013, normal per patient Surgical History Surgery Date(Month/Year) breast cysts 1993
== END 2025-05-24 13:54 | disposition home or self-care (01) ==
LOC: HO.MAMMO 13:53
PROVIDERS: PCP Internal Medicine; Visit Provider Internal Medicine
DX: N64.89 Other specified disorders of breast (principal)
CPT/HCPCS: 76642; 77061; 77065

== ENCOUNTER → 2025-05-24 14:00 | Outpatient (BNV) | payer OTHER, SELFPAY | PROVIDERS: PCP Internal Medicine; Visit Provider Internal Medicine | DX: N63.11 Unspecified lump in the right breast, upper outer quadrant (principal) | CPT/HCPCS: 76642; 77061; 77065 ==

== ENCOUNTER 2025-06-21 08:08 | Outpatient (REF) | payer OTHER, SELFPAY ==
--- OUTSIDE RECORDS SUMMARY | 2024-06-23 04:40 | XMS_ITS ---
Author Organization [facility] Address [address] [place] [id number] Care Team Providers Care Speech Language Specialist Name Role Phone Breanna Calles Primary Care Provider UnavailJason Vallejo Jr [phone] REASON FOR VISIT screening Encounters Encounter Location Date Provider Diagnosis [facility] Outpatient [address] [place] [phone] 06/23/2024 Jason Leigh Jr Colon cancer screening Z12.11 Assessments Encounter Date Diagnosis (ICD Code) Assessment Notes Treatment Notes Treatment Clinical Notes Section Notes 06/23/2024 Colon cancer screening (ICD-10 - Z12.11) Plan Of Treatment No Information Progress Notes * TYSON CLAYTONDOB:[birth year] (49 yo F)Acc No.[id number]:06/23/2024 COLON WITH MAC Patient: TYSON SCOTT Provider: Carter Leigh MD :1975 A ge:48 Y S ex:Female Date:06/23/2024 Address[address] [facility] [address] , [place] [id number] Pcp:Breanna Calles Subjective: * Chief Complaints: * S creening Assessment: * Assessment: 1. C olon cancer screening - Z12.11 (Primary) Plan: * Procedure Codes: 4 5378 DIAGNOSTIC [id number] INTRVL 3+YRS PTS CLNSCP DOCD Billing Information: * Procedure Codes: 33263 DIAGNOSTIC COLONOSCOPY. 0529F INTRVL 3+YRS PTS CLNSCP DOCD. * The named appointment provid er may or may not be the originator of this progress note, and it is not deemed complete until electronically signed by the appointment provider. Sign off status: Pending * Provider: Carter Leigh MD Date: 08/23/2023 Generated for Vickey brown/Zoe/Kerriitting on: 08/21/2024 08:33 AM EST
--- OUTSIDE RECORDS SUMMARY | 2025-06-21 08:33 | XMS_ITS | Patient Health Record ---
Author Organization [facility] Address [address] [place] [address] Care Team Providers Care Window Shade Cutter Name Role Phone Breanna Calles Primary Care Provider Unavailab Jason Perez Jr Unavailable Allergies No Known Allergies Results Component Value Reference Range Notes Ur Preg Test Reviewed date:06/23/2024 03:37:17 PM Interpretation: Performing Lab:[facility], [address] [place] [phone] Notes/Report: Urine NEGATIVE NEGATIVE This test was developed to detect early . False negative results may occur after the 5th - 7th week of when using this test method. If clinically indicated, consider a serum hCG. Reason For Referral No Information Medications Medication SIG (Take, Route, Frequency, Duration) Notes Start Date End Date Status Urinary Health/Cranberry 05/01/2024 Active MiraLax (colon prep) 17 GM/SCOOP Powder mixed with Gatorade or Crystal Light Orally begin at 5:00 p.m. the day before the procedure; Duration: 1 day 05/01/2024 Active Centrum Adults - Tablet as directed Orally 024 Active Levothyroxine Sodium 75 MCG Tablet TAKE 1 TABLET BY MOUTH EVERY DAY Oral; Duration: 30 Active Immunizations Vaccine Route Administration Date Status Comme nts Influenza Unknown 04/22/2024 Administered Social History Tobacco Use: Social History Observation Description Date Details (start date - stop date) Former Smoker NA - NA Social History Drugs/Alcohol: Social Info Question Answer Notes Alcohol Screen Did you have a drink containing alcohol in the past year? No Points 0 Interpretation Negative Tobacco Use: Social Info Question Answer Notes Tobacco Use/Smoking Patient is a former smoker Additional Details Category Social Info Options Details Miscellaneous: Marital status: Occupation: teacher Problems Problem Type SNOMED Code ICD Code Onset Dates Problem Status W/U Status Risk Notes Problem Colon cancer screening (827075607) Colon cancer screening (Z12.11) Active confirmed Problem Pre-procedure evaluation check (582662042) Encounter for other preprocedural examination (Z01.818) Active confirmed Encounters Encounter Location Date Provider Diagnosis [facility] [address] [place] [phone] 06/23/2024 Jason Leigh Jr Colon cancer screening [...] Insured Coverage Start Date Coverage End Date [facility] [address] [place], [place] [id number] TYSON CLAYTON Self - patient is the insured Medical (General) History Medical History History ICD Code Hypothyroidism Colonoscopy 2013, normal per patient Surgical History Surgery Date(Month/Year) breast cysts 1993
[2025-06-21 11:12] LABS: Thyroid Stimulating Hormone 2.51 uIU/mL (0.32-4.0)
== END 2025-06-21 08:09 | disposition home or self-care (01) ==
LOC: HO.HMGCLDS 08:08
PROVIDERS: PCP Internal Medicine; Visit Provider Internal Medicine
DX: Z00.00 Encounter for general adult medical examination without abnormal findings (principal); Z13.31 Encounter for screening for depression; E03.8 Other specified hypothyroidism; E78.2 Mixed hyperlipidemia; M15.2 Bouchard's nodes (with arthropathy)
CPT/HCPCS: 36415; 84443

== ENCOUNTER 2025-07-18 09:25 | Outpatient (AMB) | payer OTHER, SELFPAY ==
--- OUTSIDE RECORDS SUMMARY | 2024-06-23 04:40 | XMS_ITS ---
Author Organization [facility] Address [address] [place] [id number] Care Team Providers Care Pharmacy Student Name Role Phone Breanna Calles Primary Care Provider UnavailJason Vallejo Jr REASON FOR VISIT screening Encounters Encounter Location Date Provider Diagnosis [facility] Out[facility] [address] [place] [phone] 06/23/2024 Jason Leigh Jr Colon cancer screening Z12.11 Assessments Encounter Date Diagnosis (ICD Code) Assessment Notes Treatment Notes Treatment Clinical Notes Section Notes 06/23/2024 Colon cancer screening (ICD-10 - Z12.11) Plan Of Treatment No Information Progress Notes * TYSON CLAYTONDOB:[birth year] (49 yo F)Acc No.[id number]:06/23/2024 COLON WITH MAC Patient: TYSON SCOTT Provider: Carter Leigh MD :1975 A ge:48 Y S ex:Female Date:06/23/2024 [address] , [place] [id number] Pcp:Breanna Calles Subjective: * Chief Complaints: * S creening Assessment: * Assessment: 1. C olon cancer screening - Z12.11 (Primary) Plan: * Procedure Codes: 4 5378 DIAGNOSTIC [id number] INTRVL 3+YRS PTS CLNSCP DOCD Billing Information: * Procedure Codes: 76987 DIAGNOSTIC COLONOSCOPY. 0529F INTRVL 3+YRS PTS CLNSCP DOCD. * The named appointment provid er may or may not be the originator of this progress note, and it is not deemed complete until electronically signed by the appointment provider. Sign off status: Pending * Provider: Carter Leigh MD Date: 08/23/2023 Generated for Vickey brown/Zoe/Kerriitting on: 09/18/2024 10:43 AM EST
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
[2025-07-18 09:46] VITALS: BP 120/72; BMI 22.0
--- OUTSIDE RECORDS SUMMARY | 2025-07-18 10:43 | XMS_ITS | Patient Health Record ---
Author Organization [facility] Address [address] [place] [address] Care Team Providers Care Air Traffic Coordinator Name Role Phone CarrilloBreanna rosario Primary Care Provider UnavailJason Vallejo Jr Unavailable Allergies No Known Allergies Reason For Referral No Information Medications Medication [...] Status Risk Notes Problem Colon cancer screening (987687588) Colon cancer screening (Z12.11) Active confirmed Problem Pre-procedure evaluation check (091239403) Encounter for other preprocedural examination (Z01.818) Active confirmed Plan Of Treatment Future Test Test Name Order Date COLONOSCOPY 05/01/2024 Insurance Providers Payer Name Payer Address Payer Phone Subscriber Number Group Number Insured Name Patient Relationship to Insured Coverage Start Date Coverage End Date [facility] [address] JACK MAYBERRY [id number] TYSON CLAYTON Self - patient is the insured Medical (General) History Medical History History ICD Code Hypothyroidism Colonoscopy 2013, normal per patient Surgical History Surgery Date(Month/Year) breast cysts 1993
== END 2025-07-18 10:43 | disposition home or self-care (01) ==
LOC: HO.HWSM 09:25
PROVIDERS: PCP Internal Medicine; Visit Provider Advanced Practice Midwife
DX: Z01.419 Encounter for gynecological examination (general) (routine) without abnormal findings (principal); Z12.39 Encounter for other screening for malignant neoplasm of breast; N63.10 Unspecified lump in the right breast, unspecified quadrant
CPT/HCPCS: 99396; 99459